=== PATIENT | female | born 1985 | race Caucasian/White ===

== ENCOUNTER 2016-11-15 23:22 | Emergency (ER) | payer OTHER ==
[~2016-11-15] VITALS: Ht 165.1 cm; Wt 68.6 kg
[~2016-11-15 23:22] MED LIST: PRENTAB26 PO
[2016-11-15 23:27] VITALS: TEMP 36.7; Ht 165.1 cm; Wt 68.6 kg
[2016-11-15] MEDS ORDERED: ONDANSETRON INJ 2 MG/ML 2 ML VIAL IV STA (23:35)
[2016-11-15] MEDS ORDERED: SODIUM CHLORIDE 0.9% 1000ML 1,000 ML IV STA (23:35)
--- NOTE | 2016-11-15 23:48 | EMERGENCY ROOM VISIT NOTE ---
History Report prepared by Balwinder: Senia Emmanuel Under the Supervision of: Dave PriceO. First contact with patient: 23:30 Chief Complaint: ABDOMINAL PAIN Stated Complaint: STOMACH PAIN, VOMIT, DIARRHEA, DIZZY History of Present Illness The patient is a 31 year old female who presents to the Emergency Room with complaints of constant diffuse abdominal pain since last night. This morning she became nauseated and had intermittent vomiting. This evening the patient began experiencing diarrhea as well. She describes her pain as severe and rates it as a 10/10. Her abdominal pain radiates into her back. She states that she feels dehydrated. The patient has had suprapubic abdominal pain for "the past couple of weeks." She is urinating more frequently than usual and states that if she has to "hold it" her suprapubic pain worsens and she has a difficult time voiding. Her LNMP was about 3 weeks ago. She denies chance of . The patient denies fevers and any sick contacts. Source of History: patient Onset: last night Position: abdomen Symptom Intensity: 10/10 Quality: other (diffuse) Timing: constant Associated Symptoms: + back pain, + diarrhea, + nausea, + urinary symptoms, + vomiting, No fevers Review of Systems See HPI for pertinent positives & negatives. A total of 10 systems reviewed and were otherwise negative. Past Medical & Surgical Medical Problems: (1) Generalized anxiety disorder (2) Thrombosed external hemorrhoid Family History No pertinent history stated. Social History Smoking Status: Current Every Day Smoker Smokeless Tobacco Use: No Alcohol Use: none Marital Status: in relationship Housing Status: lives with family Occupation Status: unemployed Current/Historical Medications No Active Prescriptions or Reported Meds Allergies Coded Allergies: No Known Allergies (Verified , 11/15/16) Physical Exam Vital Signs Date Time Temp Pulse Resp B/P Pulse Ox O2 Delivery O2 Flow Rate FiO2 11/16/16 02:28 58 16 103/55 98 Room Air 11/16/16 01:47 76 18 106/64 98 Room Air 11/16/16 00:51 68 16 102/52 96 Room Air 11/15/16 23:27 36.7 103 20 124/85 96 Room Air Physical Exam GENERAL: Patient is awake, alert, and in no acute distress. Patient is resting comfortably and showing no signs of anxiety EYES: The conjunctivae are clear. The pupils are round and reactive. EARS, NOSE, MOUTH AND THROAT: The nose is without any evidence of any deformity. Mucous membranes are moist tongue is midline NECK: The neck is nontender and supple. RESPIRATORY: Normal respiratory effort is noted there is no evidence of wheezing rhonchi or rales CARDIOVASCULAR: Regular rate and rhythm noted there no murmurs rubs or gallops normal S1 normal S2 GASTROINTESTINAL: The abdomen is soft and nondistended, no specific guarding or rigidity. Bowel sounds are present in all quadrants. MUSCULOSKELETAL/EXTREMITIES: There is no evidence of gross deformity full range of motion is noted in the hips and shoulders SKIN: There is no obvious evidence of any rash. There are no petechiae, pallor or cyanosis noted. NEUROLOGIC: Patient is awake alert and oriented x3 Medical Decision & Procedures ER Provider Diagnostic Interpretation: CT the abdomen and pelvis was obtained in the emergency department. The report was reviewed. Preliminary Findings Only See Final Report For Complete Findings CT ABDOMEN & PELVIS: Compared to 09/24/11 Normal appendix. Liquid distal colonic contents may reflect diarrheal illness. No GI or urinary tract obstruction. Small amount of free pelvic fluid may be physiologic. Tiny fatty umbilical hernia. Radiologist: Kedar Vicente M.D. Study ready at 01:50 and initial results transmitted at 02:04 Chest x-ray as interpreted by myself reveals no infiltrate, no free air, heart size is normal. Abdominal x-ray as interpreted by myself reveals nonspecific bowel-gas pattern. Laboratory Results 11/15/16 23:45 Red Blood Count 4.98, Mean Corpuscular Volume 89.6, Mean Corpuscular Hemoglobin 31.9, Mean Corpuscular Hemoglobin Concent 35.7, Mean Platelet Volume 9.8, Neutrophils (%) (Auto) 75.4, Lymphocytes (%) (Auto) 19.6, Monocytes (%) (Auto) 4.1, Eosinophils (%) (Auto) 0.6, Basophils (%) (Auto) 0.1, Neutrophils # (Auto) 11.91, Lymphocytes # (Auto) 3.09, Monocytes # (Auto) 0.64, Eosinophils # (Auto) 0.09, Basophils # (Auto) 0.02 11/15/16 23:45 Test 11/15/16 23:40 11/15/16 23:45 Urine Color DK YELLOW Urine Appearance CLOUDY (CLEAR) Urine pH 5.0 (4.5-7.5) Urine Specific [place] 1.027 (1.000-1.030) Urine Protein NEG (NEG) Urine Glucose (UA) NEG (NEG) Urine Ketones TRACE (NEG) Urine Occult Blood TRACE (NEG) Urine Nitrite NEG (NEG) Urine Bilirubin NEG (NEG) Urine Urobilinogen NEG (NEG) Urine Leukocyte Esterase NEG (NEG) Urine WBC (Auto) 1-5 /hpf (0-5) Urine RBC (Auto) 5-10 /hpf (0-4) Urine Hyaline Casts (Auto) 10-30 /lpf (0-5) Urine Epithelial Cells (Auto) >30 /lpf (0-5) Urine Bacteria (Auto) NEG (NEG) Urine Pathogenic Casts /lpf (0) White Blood Count 15.78 K/uL (4.8-10.8) Red Blood Count 4.98 M/uL (4.2-5.4) Hemoglobin 15.9 g/dL (12.0-16.0) Hematocrit 44.6 % (37-47) Mean Corpuscular Volume 89.6 fL (80-100) Mean Corpuscular Hemoglobin 31.9 pg (25-34) Mean Corpuscular Hemoglobin Concent 35.7 g/dl (32-36) Platelet Count 277 K/uL (130-400) Mean Platelet Volume 9.8 fL (7.4-10.4) Neutrophils (%) (Auto) 75.4 % Lymphocytes (%) (Auto) 19.6 % Monocytes (%) (Auto) 4.1 % Eosinophils (%) (Auto) 0.6 % Basophils (%) (Auto) 0.1 % Neutrophils # (Auto) 11.91 K/uL (1.4-6.5) Lymphocytes # (Auto) 3.09 K/uL (1.2-3.4) Monocytes # (Auto) 0.64 K/uL (0.11-0.59) Eosinophils # (Auto) 0.09 K/uL (0-0.5) Basophils # (Auto) 0.02 K/uL (0-0.2) RDW Standard Deviation 42.3 fL (36.4-46.3) RDW Coefficient of Variation 12.9 % (11.5-14.5) Immature Granulocyte % (Auto) 0.2 % Immature Granulocyte # (Auto) 0.03 K/uL (0.00-0.02) Anion Gap 8.0 mmol/L (3-11) Est Creatinine Clear Calc Drug Dose 97.6 ml/min Estimated GFR () 111.3 Estimated GFR (Non- 96.0 BUN/Creatinine Ratio 19.1 (10-20) Calcium Level 9.3 mg/dl (8.5-10.1) Total Bilirubin 0.7 mg/dl (0.2-1) Direct Bilirubin 0.1 mg/dl (0-0.2) Aspartate Amino Transf (AST/SGOT) 14 U/L (15-37) Alanine Aminotransferase (ALT/SGPT) 15 U/L (12-78) Alkaline Phosphatase 103 U/L (45-117) Total Protein 7.9 gm/dl (6.4-8.2) Albumin 4.5 gm/dl (3.4-5.0) Lipase 68 U/L (73-393) Human Chorionic Gonadotropin, Qual NEG (NEG) Laboratory results per my review. Medications Administered Medications (Trade) Dose Ordered Sig/Dianne Route Start Time Stop Time Status Last Admin Dose Admin Sodium Chloride (Nss 1000ml) 1,000 ml @ 999 mls/hr Q1H1M STAT IV 11/15/16 23:35 11/16/16 00:35 DC 11/15/16 23:35 999 MLS/HR Ondansetron HCl (Zofran Inj) 4 mg NOW STAT IV 11/15/16 23:35 11/15/16 23:37 DC 11/15/16 23:35 4 MG Oxycodone HCl (Roxicodone Immediate Rel 5MG Home Pack) 1 homepack UD ONCE PO 11/16/16 02:30 11/16/16 02:31 DC 11/16/16 02:52 1 HOMEPACK Ondansetron HCl (ZOFRAN ODT 4MG Home Pack) 1 homepack UD ONCE PO 11/16/16 02:30 11/16/16 02:31 DC 11/16/16 02:53 1 HOMEPACK ED Course 2330: The patient was evaluated in room A11B. A complete history and physical examination were performed. 2335: Zofran 4 mg IV, NSS 1000 ml @ 999 mls/hr IV 0119: I reassessed the patient and she is still having pain. 0130: Morphine sulfate 4 mg IV PRN 0221: I reassessed the patient at this time. She is feeling better and resting comfortably. I discussed the results and treatment plan with the patient. I answered all pertaining questions that she had. She expressed understanding and verbalized agreement. The patient will be discharged home. 0230: Zofran 4 mg PO 1 homepack, Oxycodone HCl PO 1 homepack Medical Decision Differential diagnosis: Etiologies such as appendicitis, diverticulitis, PUD, biliary pathology, UTI, pancreatitis, obstruction, mesenteric ischemia, aortic pathology, infections, inflammatory bowel disease, renal colic, as well as others were entertained. Nursing notes reviewed. The patient is a 31-year-old female who presented to the emergency department for an evaluation of abdominal pain as well as diarrhea. She also had some nausea and vomiting symptoms. Patient's condition was not apparently consistent with an acute surgical abdomen. She was treated with IV fluids IV pain medicine IV antiemetics. She was found have an elevated white blood cell count. She had continued abdominal pain. For this reason a CT abdomen and pelvis was obtained. I discussed the patient's laboratory radiographic studies with her. She was feeling much better on subsequent reevaluation. She was encouraged to rest and avoid any strenuous activity. She was encouraged to drink plenty clear liquids including Pedialyte and Gatorade. She was also encouraged to follow-up with her family doctor this week for reevaluation or return to the emergency department immediately if symptoms change worsen or if the need arises. Impression Primary Impression: Abdominal pain, diffuse Additional Impression: Diarrhea Scribe Attestation The scribe's documentation has been prepared under my direction and personally reviewed by me in its entirety. I confirm that the note above accurately reflects all work, treatment, procedures, and medical decision making performed by me. Departure Information Dispostion Home / Self-Care Prescriptions No Active Prescriptions or Reported Meds Referrals Connie Oleary C.R.N.P (PCP) Forms HOME CARE DOCUMENTATION FORM, IMPORTANT VISIT INFORMATION, Work Instructions Patient Instructions Diarrhea, [facility], Vomiting - [facility] Additional Instructions Continue all medications as prescribed. Drink plenty clear liquids. Follow-up with your family this week for reevaluation but return to the emergency department immediately if symptoms change worsen or the need arises. Problem Qualifiers Additional Impression: Diarrhea Diarrhea type: unspecified type Qualified Codes: R19.7 - Diarrhea, unspecified
[2016-11-15 23:59] LABS: BASO % 0.1 %; BASO ABS # 0.02 K/uL (0-0.2); COMPLETE YES; EOS % 0.6 %; HEMATOCRIT 44.6 % (37-47); IG% 0.2 %; LYMPH % 19.6 %; LYMPH ABS # 3.09 K/uL (1.2-3.4); MEAN CELL VOLUME 89.6 fL (80-100); MEAN CORPUSCULAR HEMOGLOBIN 31.9 pg (25-34); MEAN CORPUSCULAR HGB CONC 35.7 g/dl (32-36); MEAN PLATELET VOLUME 9.8 fL (7.4-10.4); MONO % 4.1 %; NEUT % 75.4 %; PLATELET COUNT 277 K/uL (130-400); RED BLOOD COUNT 4.98 M/uL (4.2-5.4); WHITE BLOOD COUNT 15.78 K/uL (4.8-10.8)
[2016-11-16 00:18] LABS: CREATININE 0.82 mg/dl (0.60-1.20)
[2016-11-16 00:19] LABS: BUN/CREATININE RATIO 19.1 (10-20); CALCIUM 9.3 mg/dl (8.5-10.1); POTASSIUM 3.4 mmol/L (3.5-5.1)
[2016-11-16 00:20] LABS: URINE APPEARANCE CLOUDY (CLEAR); URINE BILIRUBIN NEG (NEG); URINE COLOR DK YELLOW; URINE EPITHELIAL CELL AUTO >30 /lpf (0-5); URINE NITRITE NEG (NEG); URINE SPECIFIC GRAVITY 1.027 (1.000-1.030); UROBILINOGEN NEG (NEG)
[2016-11-16 00:35] LABS: MANUAL MICROSCOPIC REQUIRED? NO; REVIEW REQ? YES
[2016-11-16 00:59] LABS: PREG INTERNAL NEGATIVE QC NEG CLEAR BACKGROUND; PREG INTERNAL POSITIVE QC POS CONTROL LINE
[2016-11-16] MEDS ORDERED: MoRPHine SULFATE 4 MG/ML 1 ML CARP\\VIAL IV PRN (01:30)
[2016-11-16 02:28] VITALS: BP 103/55; PULSE 58; O2SAT 98
[2016-11-16] MEDS ORDERED: ONDANSETRON HOME PACK 4MG OD TAB PO ONE (02:30)
[2016-11-16] MEDS ORDERED: OXYCODONE IR HOME PACK PO ONE (02:30)
--- NOTE | 2016-11-16 07:59 | DIAGNOSTIC IMAGING REPORT ---
ABDOMEN AND PELVIS CT WITHOUT CONTRAST CT DOSE: 372.38 mGy.cm HISTORY: Lower abdominal pain. TECHNIQUE: Multiaxial CT images of the abdomen and pelvis were performed without contrast. COMPARISON STUDY: Abdomen and pelvis CT 09/16/2011. FINDINGS: The lung bases are clear. No pneumoperitoneum. No pneumatosis. No suspicious lytic or blastic osseous lesions. The unenhanced liver, gallbladder, spleen, adrenal glands, pancreas, and kidneys are unremarkable. No hydronephrosis. The bladder, uterus, bilateral adnexa are unremarkable. Liquid stool within the colon. Suboptimal evaluation for bowel pathology due to the lack of intravenous and oral contrast. However, there is no definite bowel wall thickening or obstruction. Normal appendix. No retroperitoneal lymphadenopathy. Trace pelvic free fluid which is likely physiologic. IMPRESSION: 1. Liquid stool within the colon. This can be seen in the setting of a gastroenteritis. 2. No definite bowel wall thickening or obstruction. 3. Normal appendix. Electronically signed by: Reyes Fairbanks M.D. 11/16/2016 7:57 AM Dictated Date/Time: 11/16/2016 7:53 AM
--- NOTE | 2016-11-16 08:00 | DIAGNOSTIC IMAGING REPORT ---
CHEST AND ABDOMEN 2 VIEWS HISTORY: Nausea. Vomiting. Diarrhea. COMPARISON: Chest 09/01/2006. Abdomen and pelvis CT 09/16/2011. FINDINGS: The lungs are clear. The cardiomediastinal silhouette is within normal limits. There is no pneumoperitoneum or pneumatosis. The bowel gas pattern is unremarkable. No evidence for bowel obstruction. No pathologic calcifications. Multiple small fluid levels within the colon. IMPRESSION: No acute cardiopulmonary process. No evidence for bowel obstruction. Multiple small fluid levels within the colon. This can be seen in the setting of a gastroenteritis. Electronically signed by: Reyes Fairbanks M.D. 11/16/2016 7:58 AM Dictated Date/Time: 11/16/2016 7:57 AM
== END 2016-11-16 02:57 | disposition home or self-care (01) ==
LOC: C.EDB 23:23 → C.EDA 11-16 02:57
DX: R10.9 Unspecified abdominal pain (principal); R19.7 Diarrhea, unspecified; F17.200 Nicotine dependence, unspecified, uncomplicated

== ENCOUNTER → 2016-11-30 | Outpatient (CLI) | payer OTHER | END | disposition home or self-care (01) | LOC: C.PAPS 08:00 | PROVIDERS: ATTEND Obstetrics & Gynecology | DX: Z01.419 Encounter for gynecological examination (general) (routine) without abnormal findings (principal) ==

== ENCOUNTER → 2016-12-04 | Outpatient (CLI) | payer OTHER ==
[2016-12-04 13:33] LABS: PROLACTIN 5.39 ng/mL
== END | disposition home or self-care (01) ==
LOC: C.LAB 11:43
PROVIDERS: ATTEND Obstetrics & Gynecology
DX: N94.6 Dysmenorrhea, unspecified (principal); R10.2 Pelvic and perineal pain

== ENCOUNTER → 2017-01-03 | Outpatient (CLI) | payer OTHER ==
[2017-01-03 15:07] LABS: URINE APPEARANCE CLEAR (CLEAR); URINE BILIRUBIN NEG (NEG); URINE COLOR YELLOW; URINE NITRITE NEG (NEG); UROBILINOGEN NEG (NEG)
[2017-01-03 15:14] LABS: MANUAL MICROSCOPIC REQUIRED? NO; REVIEW REQ? NO
--- NOTE | 2017-01-08 09:24 | CODING QUERY NO DIAGNOSIS ---
TREATMENT RENDERED WITHOUT A DIAGNOSIS To promote full compliance with coding requirements relating to patient care, physician participation is requested in all cases of restaurant attendant uncertainty. Please assist us with providing a diagnosis/symptom for the test(s) below: A diagnosis/symptom was not documented on your Order. A valid diagnosis/symptom is required to bill all insurances. Please remember that we are unable to code a diagnosis of rule out, probable, possible, questionable, or suspected. Tests that require a diagnosis: DOS: 01/03/17 * U/A AND CULTURE CATH DIAGNOSIS: Provider Signature: Date: Thank you Karina Rob [employer] Once completed, please kindly fax back to [phone] For questions please call [phone]
== END | disposition home or self-care (01) ==
LOC: C.LABSPEC 14:28
PROVIDERS: ATTEND Obstetrics & Gynecology
DX: R30.0 Dysuria (principal)

== ENCOUNTER → 2017-07-03 | Outpatient (CLI) | payer OTHER ==
[~2017-07-03] MED LIST changes: +ACET-1311 PO; +ONDA4TAB10 SL; -PRENTAB26 PO
[2017-07-03 18:03] LABS: ALT/SGPT 17 U/L (12-78); BLOOD UREA NITROGEN 12 mg/dl (7-18); BUN/CREATININE RATIO 15.3 (10-20); CALCIUM 9.7 mg/dl (8.5-10.1); CARBON DIOXIDE 25 mmol/L (21-32); CHLORIDE 107 mmol/L (98-107); CREATININE 0.75 mg/dl (0.60-1.20); GLUCOSE 90 mg/dl (70-99); POTASSIUM 3.9 mmol/L (3.5-5.1); SODIUM 140 mmol/L (136-145)
[2017-07-03 18:13] LABS: BASO % 0.1 %; BASO ABS # 0.01 K/uL (0-0.2); COMPLETE YES; EOS % 0.3 %; IG% 0.2 %; LYMPH % 21.2 %; LYMPH ABS # 2.13 K/uL (1.2-3.4); MEAN CELL VOLUME 91.5 fL (80-100); MEAN CORPUSCULAR HEMOGLOBIN 30.9 pg (25-34); MEAN CORPUSCULAR HGB CONC 33.8 g/dl (32-36); MEAN PLATELET VOLUME 10.2 fL (7.4-10.4); MONO % 4.3 %; NEUT % 73.9 %; PLATELET COUNT 272 K/uL (130-400); RED BLOOD COUNT 4.92 M/uL (4.2-5.4); WHITE BLOOD COUNT 10.05 K/uL (4.8-10.8)
[2017-07-03 18:16] LABS: ALB/GLOB RATIO 1.3 (0.9-2); ALKALINE PHOSPHATASE 102 U/L (45-117); AST/SGOT 14 U/L (15-37); THYROID STIMULATING HORMONE 0.884 uIu/ml (0.300-4.500)
== END | disposition home or self-care (01) ==
LOC: C.LABPVFM 14:29
PROVIDERS: ATTEND Nurse Practitioner Family
DX: R35.0 Frequency of micturition (principal); E55.9 Vitamin D deficiency, unspecified; R79.89 Other specified abnormal findings of blood chemistry; F41.9 Anxiety disorder, unspecified

== ENCOUNTER → 2017-08-07 | Outpatient (CLI) | payer OTHER ==
[~2017-08-07] MED LIST changes: +AMOX500C3 PO; +SERT50TA PO
[2017-08-07 17:58] LABS: ZZInitiateTest Complete
[2017-08-07 18:41] LABS: MANUAL MICROSCOPIC REQUIRED? NO; REVIEW REQ? NO
--- NOTE | 2017-08-30 12:21 | CODING QUERY NO DIAGNOSIS ---
TREATMENT RENDERED WITHOUT A DIAGNOSIS 08/07/17 To promote full compliance with coding requirements relating to patient care, physician participation is requested in all cases of mainframe applications developer uncertainty. Please assist us with providing a diagnosis/symptom for the test(s) below: A diagnosis/symptom was not documented on your Order. A valid diagnosis/symptom is required to bill all insurances. Please remember that we are unable to code a diagnosis of rule out, probable, possible, questionable, or suspected. Tests that require a diagnosis: * URINE MICROSCOPY DIAGNOSIS: Provider Signature: Date: Thank you Ivis Black Health Information Management Once completed, please kindly fax back to [phone] For questions please call [phone]
== END | disposition home or self-care (01) ==
LOC: C.LABPVFM 11:35
PROVIDERS: ATTEND Nurse Practitioner Family
DX: R31.29 Other microscopic hematuria (principal)

== ENCOUNTER 2017-08-10 10:11 | Emergency (ER) | payer OTHER ==
[~2017-08-10] VITALS: Ht 165.1 cm; Wt 63.5 kg
[2017-08-10] MEDS ORDERED: SODIUM CHLORIDE 0.9% 1000ML 1,000 ML IV STA (11:10)
[2017-08-10] MEDS ORDERED: ACETAMINOPHEN 500 MG TAB PO STA (11:10)
[2017-08-10] MEDS ORDERED: COUGH DROP (SUGAR FREE) LOZ 24 LOZ/1 BOX PO STA (11:10)
[2017-08-10] MEDS ORDERED: ONDANSETRON 8 MG/54 ML D5W IV STA (11:10)
[2017-08-10] MEDS ORDERED: IBUPROFEN 600 MG TAB PO STA (11:10)
[2017-08-10] MEDS ORDERED: ACET-1311 PO (11:17)
[2017-08-10 11:22] VITALS: Ht 165.1 cm; Wt 63.5 kg
[2017-08-10 11:31] LABS: BASO % 0.1 %; BASO ABS # 0.01 K/uL (0-0.2); COMPLETE YES; EOS % 0.1 %; HEMATOCRIT 41.8 % (37-47); IG% 0.3 %; LYMPH % 10.4 %; LYMPH ABS # 1.56 K/uL (1.2-3.4); MEAN CELL VOLUME 88.7 fL (80-100); MEAN CORPUSCULAR HEMOGLOBIN 30.8 pg (25-34); MEAN CORPUSCULAR HGB CONC 34.7 g/dl (32-36); MEAN PLATELET VOLUME 9.6 fL (7.4-10.4); MONO % 5.2 %; NEUT % 83.9 %; PLATELET COUNT 202 K/uL (130-400); RED BLOOD COUNT 4.71 M/uL (4.2-5.4); WHITE BLOOD COUNT 15.04 K/uL (4.8-10.8)
[2017-08-10 11:39] LABS: INR 1.1 (0.9-1.1); PARTIAL THROMBOPLASTIN RATIO 1.1
[2017-08-10 11:39] LABS: URINE APPEARANCE CLOUDY (CLEAR); URINE BILIRUBIN NEG (NEG); URINE COLOR DK YELLOW; URINE EPITHELIAL CELL AUTO >30 /lpf (0-5); URINE NITRITE NEG (NEG); URINE SPECIFIC GRAVITY 1.022 (1.000-1.030); UROBILINOGEN NEG (NEG)
[2017-08-10 11:41] LABS: MANUAL MICROSCOPIC REQUIRED? NO; REVIEW REQ? NO
[2017-08-10 11:45] LABS: CREATININE 0.66 mg/dl (0.60-1.20); POTASSIUM 3.6 mmol/L (3.5-5.1)
--- NOTE | 2017-08-10 11:48 | DIAGNOSTIC IMAGING REPORT ---
SINGLE VIEW CHEST CLINICAL HISTORY: Generalized weakness. FINDINGS: An AP, portable, upright chest radiograph is compared to study dated 11/16/2016. The examination is degraded by portable technique and patient rotation. The cardiomediastinal silhouette is unremarkable. The lungs appear hyperinflated, likely due to good inspiratory result. The lungs and pleural spaces are clear. No pneumothorax is seen. The bony thorax is grossly intact. IMPRESSION: No active disease in the chest. Electronically signed by: David West M.D. 08/10/2017 11:47 AM Dictated Date/Time: 08/10/2017 11:46 AM
[2017-08-10 11:56] LABS: THYROID STIMULATING HORMONE 0.895 uIu/ml (0.300-4.500)
--- NOTE | 2017-08-10 12:06 | EMERGENCY ROOM VISIT NOTE ---
History Report prepared by Balwinder: Senia Emmanuel Under the Supervision of: Dr. Kev Burris M.D. First contact with patient: 10:43 Chief Complaint: ILLNESS Stated Complaint: BACK, SHOULDER PAIN, MCKEON, N, SORETHROAT History of Present Illness The patient is a 32 year old white female with no significant past medical history who presents to the ED with a cc of worsening illness for the past couple of weeks. She is "just getting over some upper respiratory symptoms." Her symptoms became worse last night. She is currently c/o generalized pain in her back, abdomen, and shoulders. She describes her pain as sharp and rates it as a 10/10. Positive sore throat, headache, productive cough, nausea, dizziness. Negative urinary symptoms, diarrhea, leg pain or swelling, rash. She has been taking Tylenol, which has helped her headache but nothing else. She has not had a flu shot this year. Pt denies recent travel. She was on antibiotics about 2 weeks ago for a vaginal infection. Source of History: patient Onset: MEDICARE BILLER Position: other (global) Symptom Intensity: 10/10 Quality: sharp Timing: worsening Modifying Factors (Relieving): tylenol Associated Symptoms: + headache, + sorethroat, + cough, + nausea, + abdominal pain, + back pain, No diarrhea, No urinary symptoms, No rash Review of Systems See HPI for pertinent positives and negatives. A total of ten systems were reviewed and were otherwise negative. Past Medical & Surgical Medical Problems: (1) Generalized anxiety disorder (2) Thrombosed external hemorrhoid Family History No pertinent history stated. Social History Smoking Status: Current Every Day Smoker Alcohol Use: none Marital Status: in relationship Housing Status: lives with family Occupation Status: unemployed Current/Historical Medications Scheduled Ondasetron Odt (Zofran Odt), 4 MG SL Q6H Miscellaneous Medications Acetaminophen (Tylenol), 650 MG PO Allergies Coded Allergies: No Known Allergies (Verified , 08/10/17) Physical Exam Vital Signs Date Time Temp Pulse Resp B/P (MAP) Pulse Ox O2 Delivery O2 Flow Rate FiO2 08/10/17 13:27 88 16 115/72 98 08/10/17 13:12 63 20 106/62 98 Room Air 08/10/17 12:20 36.6 53 16 98/59 98 Room Air 08/10/17 10:33 36.7 88 20 106/65 100 Room Air Physical Exam GENERAL: Awake, alert, well-appearing, NAD HENT: Normocephalic, atraumatic. Posterior pharynx clear, no tonsillitis, no exudate. EYES: Normal conjunctiva. Sclera non-icteric. NECK: Supple. No nuchal rigidity. FROM. No stridor over anterior neck. RESPIRATORY: CTAB, no rhonchi, wheezing, crackles CARDIAC: RRR, no MRG ABDOMEN: Soft, mild epigastric pain, BS+ MSK: No chest wall TTP, no LE edema NEURO: GCS 15, CN 2-12 intact, moves all 4s on command SKIN: No rash or jaundice noted. Medical Decision & Procedures ER Provider Diagnostic Interpretation: Radiology results as stated below per my review and radiologist interpretation: SINGLE VIEW CHEST CLINICAL HISTORY: Generalized weakness. FINDINGS: An AP, portable, upright chest radiograph is compared to study dated 11/16/2016. The examination is degraded by portable technique and patient rotation. The cardiomediastinal silhouette is unremarkable. The lungs appear hyperinflated, likely due to good inspiratory result. The lungs and pleural spaces are clear. No pneumothorax is seen. The bony thorax is grossly intact. IMPRESSION: No active disease in the chest. Electronically signed by: David West M.D. 08/10/2017 11:47 AM Dictated Date/Time: 08/10/2017 11:46 AM Laboratory Results 08/10/17 11:20 Red Blood Count 4.71, Mean Corpuscular Volume 88.7, Mean Corpuscular Hemoglobin 30.8, Mean Corpuscular Hemoglobin Concent 34.7, Mean Platelet Volume 9.6, Neutrophils (%) (Auto) 83.9, Lymphocytes (%) (Auto) 10.4, Monocytes (%) (Auto) 5.2, Eosinophils (%) (Auto) 0.1, Basophils (%) (Auto) 0.1, Neutrophils # (Auto) 12.63, Lymphocytes # (Auto) 1.56, Monocytes # (Auto) 0.78, Eosinophils # (Auto) 0.01, Basophils # (Auto) 0.01 08/10/17 11:20 Test 08/10/17 11:15 08/10/17 11:20 Urine Color DK YELLOW Urine Appearance CLOUDY (CLEAR) Urine pH 6.0 (4.5-7.5) Urine Specific [place] 1.022 (1.000-1.030) Urine Protein NEG (NEG) Urine Glucose (UA) NEG (NEG) Urine Ketones 1+ (NEG) Urine Occult Blood TRACE (NEG) Urine Nitrite NEG (NEG) Urine Bilirubin NEG (NEG) Urine Urobilinogen NEG (NEG) Urine Leukocyte Esterase NEG (NEG) Urine WBC (Auto) 1-5 /hpf (0-5) Urine RBC (Auto) 10-30 /hpf (0-4) Urine Hyaline Casts (Auto) 1-5 /lpf (0-5) Urine Epithelial Cells (Auto) >30 /lpf (0-5) Urine Bacteria (Auto) NEG (NEG) Urine Test NEG (NEG) Influenza Type A Antigen Neg for Influ A (NEG) Influenza Type B Antigen Neg for Influ B (NEG) White Blood Count 15.04 K/uL (4.8-10.8) Red Blood Count 4.71 M/uL (4.2-5.4) Hemoglobin 14.5 g/dL (12.0-16.0) Hematocrit 41.8 % (37-47) Mean Corpuscular Volume 88.7 fL (80-100) Mean Corpuscular Hemoglobin 30.8 pg (25-34) Mean Corpuscular Hemoglobin Concent 34.7 g/dl (32-36) Platelet Count 202 K/uL (130-400) Mean Platelet Volume 9.6 fL (7.4-10.4) Neutrophils (%) (Auto) 83.9 % Lymphocytes (%) (Auto) 10.4 % Monocytes (%) (Auto) 5.2 % Eosinophils (%) (Auto) 0.1 % Basophils (%) (Auto) 0.1 % Neutrophils # (Auto) 12.63 K/uL (1.4-6.5) Lymphocytes # (Auto) 1.56 K/uL (1.2-3.4) Monocytes # (Auto) 0.78 K/uL (0.11-0.59) Eosinophils # (Auto) 0.01 K/uL (0-0.5) Basophils # (Auto) 0.01 K/uL (0-0.2) RDW Standard Deviation 40.8 fL (36.4-46.3) RDW Coefficient of Variation 12.6 % (11.5-14.5) Immature Granulocyte % (Auto) 0.3 % Immature Granulocyte # (Auto) 0.05 K/uL (0.00-0.02) Prothrombin Time 12.0 SECONDS (9.0-12.0) Prothromb Time International Ratio 1.1 (0.9-1.1) Activated Partial Thromboplast Time 29.3 SECONDS (21.0-31.0) Partial Thromboplastin Ratio 1.1 Anion Gap 6.0 mmol/L (3-11) Est Creatinine Clear Calc Drug Dose 111.1 ml/min Estimated GFR () 136.4 Estimated GFR (Non- 117.7 BUN/Creatinine Ratio 18.0 (10-20) Calcium Level 9.0 mg/dl (8.5-10.1) Magnesium Level 2.0 mg/dl (1.8-2.4) Total Bilirubin 1.2 mg/dl (0.2-1) Direct Bilirubin 0.2 mg/dl (0-0.2) Aspartate Amino Transf (AST/SGOT) 14 U/L (15-37) Alanine Aminotransferase (ALT/SGPT) 14 U/L (12-78) Alkaline Phosphatase 91 U/L (45-117) Total Protein 7.5 gm/dl (6.4-8.2) Albumin 4.0 gm/dl (3.4-5.0) Lipase 52 U/L (73-393) Thyroid Stimulating Hormone (TSH) 0.895 uIu/ml (0.300-4.500) Laboratory results reviewed by me. Medications Administered Medications (Trade) Dose Ordered Sig/Dianne Route Start Time Stop Time Status Last Admin Dose Admin Sodium Chloride 1,000 ml @ 999 mls/hr Q1H1M STAT IV 08/10/17 11:10 08/10/17 12:10 DC 08/10/17 11:37 999 MLS/HR Ondansetron HCl (Zofran 8mg Iv) 8 mg NOW STAT IV 08/10/17 11:10 08/10/17 11:12 DC 08/10/17 11:37 8 MG Ibuprofen (Motrin Tab) 600 mg NOW STAT PO 08/10/17 11:10 08/10/17 11:12 DC 08/10/17 11:38 600 MG Acetaminophen (Tylenol Tab) 1,000 mg NOW STAT PO 08/10/17 11:10 08/10/17 11:12 DC 08/10/17 11:37 1,000 MG Menthol (Nice Andra) 1 andra NOW STAT PO 08/10/17 11:10 08/10/17 11:12 DC 08/10/17 11:10 1 ANDRA Metoclopramide HCl (Reglan Inj) 10 mg NOW STAT IV 08/10/17 12:42 08/10/17 12:43 DC 08/10/17 12:52 10 MG ED Course 1043: The patient was evaluated in room C2B. A complete history and physical exam was performed. 1110: Menthol 1 andra PO, Tylenol 1000 mg PO, Motrin 600 mg PO, Zofran 8 mg IV, NSS 1000 ml @ 999 mls/hr IV 1221: I updated the patient and she is doing well. 1242: Reglan 10 mg IV 1311: I reassessed the patient at this time. She is feeling better and resting comfortably. I discussed the results and treatment plan with the patient. I answered all pertaining questions that she had. She expressed understanding and verbalized agreement. The patient will be discharged home. Medical Decision The patient is a 32 year old white female with no significant past medical history who presents to the ED with a cc of worsening illness for the past couple of weeks. Differential diagnoses includes viral illness, bronchitis, pneumonia. Patient was seen and evaluated at the bedside. Patient was complaining of some muscular upper respiratory type symptoms as well as body aches headache and back pain. Patient says that the back pain is chronic and has had no prior history of surgery, immunosuppressive therapy, trauma, blood thinners, bowel or bladder incontinence, or saddle anesthesia. Patient also has no lower extremity weakness. Patient did complain of some mild headache however is not the worst of her life and does not have signs of meningismus no stiff neck. Patient has a clear posterior pharynx. Patient does smoke which may be slightly related. Patient was given smoking cessation counseling. Patient did have blood work a urine and chest x-ray and supportive care. Patient was feeling improved although did have some mild nausea. His lab work did show a mild leukocytosis of 15,000. Patient had a clean urine. There was blood in the urine and patient states that she's had this issue in the past and is not on her menstrual period. Patient does have urology follow-up. Patient's kidney function is normal. Patient does not have elevated LFTs or lipase. Patient is feeling improved after IVF. Patient does not have a surgical abdomen. Patient tolerated by mouth. CXR clear. Patient informed of all findings. Patient was given strict follow-up, discharge, and return precautions. Patient reported care patient was safely discharged home. Medication Reconcilliation Current Medication List: was personally reviewed by me Blood Pressure Screening Patient's blood pressure: Normal blood pressure Impression Primary Impression: URI, acute Additional Impressions: Viral illness Encounter for smoking cessation counseling Scribe Attestation The scribe's documentation has been prepared under my direction and personally reviewed by me in its entirety. I confirm that the note above accurately reflects all work, treatment, procedures, and medical decision making performed by me. Departure Information Dispostion Home / Self-Care Prescriptions Ondasetron Odt (ZOFRAN ODT) 4 Mg Tab 4 MG SL Q6H for Nausea, #6 TAB Prov: Kev Burris M.D. 08/10/17 Referrals Minoo Galicia (PCP) Patient Instructions ED Smoking Cessation, [facility] Additional Instructions Please return to the emergency department if you have worsening or recurrent symptoms not amenable to at-home treatment. Please call for a follow-up appointment with her primary care physician. Please take your medications as prescribed. If you have other concerns and/or complaints please feel free to also call your primary care physician's office or return the ED for further evaluation, management, and treatment. You were found to have an elevated blood pressure today (>120 sytolic or >90 diastolic). Per medicare guidelines, you need to follow up with this blood pressure screening with your Primary Care Physician (PCP). For a new PCP call [phone]. You received narcotic or benzodiazepene medication while in the emergency room today. This is an addictive medication that may cause drowziness as well as constipation. Do not drive, operate heavy machinery, or drink alcohol under the influence of this medication. You may take 600 mg Ibuprofen every 6 hours as needed for pain with food for no more than 2 consecutive days. You may take tylenol 1000 mg every 6 hours as needed for pain. You may take motrin and tylenol separately or at the same time. Take nausea medicine as needed. Do not expect to tolerate a full diet while you are sick. Maintain adequate hydration and slowly advance your diet as tolerated. You have been examined and treated today on an emergency basis only. This is not a substitute for, or an effort to provide, complete comprehensive medical care. It is impossible to recognize and treat all injuries or illnesses in a single emergency department visit. It is therefore important that you follow up closely with [facility]. Call as soon as possible for an appointment. Thank you for your time and consideration. I look forward to speaking with you again soon. Please don't hesitate to call us if you have any questions. Problem Qualifiers
[2017-08-10 12:20] VITALS: TEMP 36.6
[2017-08-10] MEDS ORDERED: METOCLOPRAMIDE HCL INJ 5 MG/ML 2 ML VIAL IV STA (12:42)
[2017-08-10] MEDS ORDERED: ONDA4TAB10 SL (12:56)
[2017-08-10 13:27] VITALS: BP 115/72; PULSE 88; O2SAT 98
== END 2017-08-10 13:27 | disposition home or self-care (01) ==
LOC: C.EDB 10:13 → C.EDC 13:27
DX: J06.9 Acute upper respiratory infection, unspecified (principal); Z71.6 Tobacco abuse counseling; F41.1 Generalized anxiety disorder; F17.210 Nicotine dependence, cigarettes, uncomplicated; M54.9 Dorsalgia, unspecified; G89.29 Other chronic pain

== ENCOUNTER 2017-08-14 02:30 | Emergency (ER) | payer OTHER ==
[~2017-08-14] VITALS: Ht 167 cm; Wt 66.4 kg
[~2017-08-14 02:30] MED LIST changes: -AMOX500C3 PO; -SERT50TA PO
[2017-08-14 02:33] VITALS: TEMP 36.4; Ht 167 cm; Wt 66.4 kg
[2017-08-14] MEDS ORDERED: AMOXICILLIN 250 MG CAP PO STA (02:44)
[2017-08-14] MEDS ORDERED: AMOX500C3 PO (02:46)
[2017-08-14] MEDS ORDERED: EMPTY 8 DRAM VIAL ONE (02:49)
--- NOTE | 2017-08-14 02:50 | EMERGENCY ROOM VISIT NOTE ---
History First contact with patient: 02:36 Chief Complaint: EAR PAIN Stated Complaint: LEFT EAR PAIN History of Present Illness The patient is a 32 year old female who presents to the Emergency Room with complaints of left ear pain that woke her up out of sleep tonight who has had cold symptoms for the past week. Patient tried Motrin with minimal relief of symptoms. Patient denies chest pain, dyspnea, neck stiffness, abdominal pain, vomiting, diarrhea. Review of Systems See HPI for pertinent positives & negatives. A total of 10 systems reviewed and were otherwise negative. Past Medical/Surgical History Medical Problems: (1) Generalized anxiety disorder (2) Thrombosed external hemorrhoid Social History Smoking Status: Current Every Day Smoker Alcohol Use: none Marital Status: in relationship Housing Status: lives with family Occupation Status: employed Current/Historical Medications Scheduled Amoxicillin (Amoxil), 1 CAP PO TID Ondasetron Odt (Zofran Odt), 4 MG SL Q6H Miscellaneous Medications Acetaminophen (Tylenol), 650 MG PO Physical Exam Vital Signs Date Time Temp Pulse Resp B/P (MAP) Pulse Ox O2 Delivery O2 Flow Rate FiO2 08/14/17 02:33 36.4 92 18 125/86 100 Room Air Physical Exam VITALS: Vitals are noted on the nurse's note and reviewed by myself. Vital signs stable. GENERAL: Pleasant female, in no acute distress, nondiaphoretic, well-developed well-nourished. SKIN: The skin was without rashes, erythema, edema, or bruising. There is no tenting of the skin. Capillary reflex less than 2 seconds. HEAD: Normocephalic atraumatic. EARS: Left tympanic membranes bulging consistent with otitis media, right External auditory canals clear, tympanic membranes pearly harvey without erythema or effusion. No mastoid tenderness bilaterally. EYES: Pupils equal round and reactive to light and accommodation. Conjunctivae without injection, sclerae without icterus. Extraocular movements intact. NOSE: Patent, turbinates without inflammation or discharge. No sinus tenderness. MOUTH: Mucous membranes moist. Pharynx without erythema or exudate. Uvula midline. Airway patent. Tongue does not deviate. NECK: Supple without nuchal rigidity. No lymphadenopathy. No thyromegaly. Cervical spine is nontender. No JVD. No meningeal signs HEART: Regular rate and rhythm without murmurs gallops or rubs. LUNGS: Clear to auscultation bilaterally without wheezes, rales or rhonchi. No dullness to percussion. No retractions or accessory muscle use. ABDOMEN: Positive bowel sounds x 4. Normal tympanic percussion. Soft, nontender, without masses or organomegaly. Farris sign negative. No guarding or rebound tenderness. MUSCULOSKELETAL: No muscle atrophy, erythema, or edema noted. NEURO: Patient was alert and oriented to person place and time. Normal sensation to light and sharp touch. No focal neurological deficits. Medical Decision & Procedures ED Course Prior records/ancillary studies reviewed. Triage Nursing notes reviewed. The patient's history was concerning for a cold symptoms with ear pain Differential diagnosis: Etiologies such as viral syndrome, tonsillitis, streptococcal pharyngitis, mononucleosis, peritonsillar abscess, retropharyngeal abscess, otitis, pneumonia , influenza, as well as others were entertained. ER treatment provided: Amoxicillin On reassessment the patient felt better. Diagnostics interpreted by me: Deferred This appears to be consistent with left otitis media. Patient started on antibiotics. No signs of meningitis or mastoiditis. Patient was advised to take medications as directed and to follow-up family care in a few days or here in the ER sooner for high fevers, neck stiffness, chest pain, worsening signs or symptoms or as needed. By the evaluation outlined above emergent etiologies such as peritonsillar abscess, retropharyngeal abscess, pneumonia, meningitis, urinary tract infection, sepsis, bacteremia, as well as others were deemed relatively unlikely. The pt informed about the findings as listed above. All questions were answered and pleased with the treatment. Return instructions were outlined and the patient was discharged in stable condition. Outpatient prescription management: Amoxicillin Referral: The patient was referred back to their primary care physician for follow-up in 2 to 3 days for a recheck of the current condition. Medical Decision As above Medication Reconcilliation Current Medication List: was personally reviewed by me Blood Pressure Screening Patient's blood pressure: Normal blood pressure Impression Primary Impression: Left otitis media Departure Information Dispostion Home / Self-Care Condition GOOD Prescriptions Amoxicillin (AMOXIL) 500 Mg Cap 1 CAP PO TID for 10 Days, #30 CAP Prov: Dorcas Enriquez .ZOE 08/14/17 Forms WORK / SCHOOL INSTRUCTIONS, HOME CARE DOCUMENTATION FORM, IMPORTANT VISIT INFORMATION Patient Instructions [facility], ED Otitis Media Acute Adult Additional Instructions Amoxicillin 500 mg: Take one pill 3 times daily for 10 days for your infection. All antibiotics can cause diarrhea. If this occurs and you feel worse or it does not resolve in 1-2 days follow up with your doctor or return to the Emergency Department as this could be signs of serious underlying problems. Any medication can cause an allergic reaction, stop the pills immediately and return to the ER for rash, hives, breathing difficulties, or swelling. Acetaminophen(Tylenol) may be used for fever or pain. Use 1000mg every six hours as needed. Avoid using more than 3000mg in a 24 hour period. (AND/OR) Ibuprofen(Motrin, Advil) may be used for fever or pain. Use 600mg every six hours as needed. Take with food. Avoid using more than 2400mg in a 24 hour period. Do not use 2400mg per day for more than three consecutive days without physician direction. Prolonged inappropriate use can lead to stomach upset or ulcers. Afrin nasal spray: 2-3 sprays to each nostril twice daily as needed for congestion. Do not use for more than 3-4 days because it can lead to worsening rebound congestion. Pseudoephedrine(Sudaphed): 30-60mg every 6 hours as needed for nasal congestion. Do not take this with other stimulant products or supplements. Rest and drink plenty of fluids. Controlling your fever with Tylenol and Ibuprofen as above will make you feel better. Wash your hands after nose blowing, sneezing, or coughing. Most germs are spread through contact, therefore improper hygiene may result in your close contacts and loved ones becoming ill just like you. Continue current medications. Return to the ER for severe headache, neck stiffness, chest pain, difficulty breathing, fevers, vomiting, worsening of your condition, or as needed. Follow up with your primary physician this week for a recheck of your current condition. Problem Qualifiers Primary Impression: Left otitis media Otitis media type: suppurative Chronicity: acute Recurrence: not specified as recurrent Spontaneous tympanic membrane rupture: without spontaneous rupture Qualified Codes: H66.002 - Acute suppurative otitis media without spontaneous rupture of ear drum, left ear
[2017-08-14 03:04] VITALS: BP 130/80; PULSE 90; O2SAT 100
== END 2017-08-14 03:07 | disposition home or self-care (01) ==
LOC: C.EDB 02:31
DX: H66.92 Otitis media, unspecified, left ear (principal)

== ENCOUNTER → 2017-10-08 | Outpatient (CLI) | payer OTHER ==
[~2017-10-08] MED LIST changes: +SERT50TA PO
--- NOTE | 2017-10-08 11:22 | DIAGNOSTIC IMAGING REPORT ---
ABD/PELVIS COMBO CLINICAL HISTORY: 32 years-old Female presenting with R31.29 Hematuria, [id number] DysuriaSPOKE WITH BRIAN C.. TECHNIQUE: Multidetector CT of the abdomen and pelvis was performed before and after the administration of intravenous contrast. IV contrast: 119 mL of Optiray 320. A dose lowering technique was used consistent with the principles of ALARA (as low as reasonably achievable). COMPARISON: 11/16/2016. CT DOSE (mGy.cm): The estimated cumulative dose is 968.58 mGycm. FINDINGS: Upholstered Goods Crafter topogram: Unremarkable. Lung bases: Subtle diffuse groundglass centrilobular tree-in-bud opacities suggested. Normal heart size. No pericardial or pleural effusion. Liver: Normal morphology. No liver lesion. Patent hepatic vasculature. Biliary: No intrahepatic or extrahepatic biliary ductal dilatation. Normal gallbladder. Pancreas: Normal. Spleen: Normal. Adrenal glands: Normal. Kidneys and ureters: Normal. No nephrolithiasis. Normal excretion of the kidneys bilaterally. No hydronephrosis. No filling defects in the urinary collecting systems. Circumaortic left renal vein noted. Allowing for incomplete opacification of the left ureter on delayed imaging, the ureters are normal. Bladder: Incompletely evaluated secondary to underdistention. Pelvic organs: Retroverted uterus. Multiple follicles noted bilaterally in the ovaries. The right ovary is mildly prominent, likely within the range of normal. Bowel: Normal appendix. No bowel obstruction. Peritoneal cavity: No free fluid or intraperitoneal gas. Lymph nodes: No enlarged lymph nodes in the abdomen or pelvis. Vasculature: Aorta and IVC patent and normal in caliber. Abdominal wall: Normal. Musculoskeletal: Normal. IMPRESSION: 1. Allowing for under distention of the urinary bladder, normal-appearing urinary collecting systems without evidence of calculus or mass. Normal kidneys. 2. Subtle diffuse groundglass centrilobular tree-in-bud opacities at the lung bases. This could be seen in the setting of respiratory bronchiolitis if the patient smokes or hypersensitivity pneumonitis if the patient does not smoke among other etiologies. Electronically signed by: Steven Tang M.D. 10/08/2017 11:21 AM Dictated Date/Time: 10/08/2017 11:11 AM
== END | disposition home or self-care (01) ==
LOC: C.CTS 10:33
PROVIDERS: ATTEND Urology
DX: R31.29 Other microscopic hematuria (principal); R30.0 Dysuria; R91.8 Other nonspecific abnormal finding of lung field

== ENCOUNTER → 2017-12-16 | Outpatient (CLI) | payer OTHER | END | disposition home or self-care (01) | LOC: C.PAPS 14:26 | PROVIDERS: ATTEND Obstetrics & Gynecology | DX: Z01.419 Encounter for gynecological examination (general) (routine) without abnormal findings (principal) ==

== ENCOUNTER 2018-02-03 10:16 | Emergency (ER) | payer OTHER ==
[~2018-02-03] VITALS: Ht 165.1 cm; Wt 58.9 kg
[2018-02-03 10:26] VITALS: TEMP 36.6; Ht 165.1 cm; Wt 58.9 kg
[2018-02-03] MEDS ORDERED: SODIUM CHLORIDE 0.9% 1000ML 1,000 ML IV STA (11:43)
[2018-02-03] MEDS ORDERED: ONDANSETRON INJ 2 MG/ML 2 ML VIAL IV STA (11:43)
[2018-02-03] MEDS ORDERED: ACETAMINOPHEN IV 100 ML IV ONE (11:45)
[2018-02-03] MEDS ORDERED: OPTIRAY 320 IV PRN (12:15)
[2018-02-03 12:45] LABS: BASO % 0.3 %; BASO ABS # 0.03 K/uL (0-0.2); EOS % 0.3 %; EOS ABS # 0.03 K/uL (0-0.5); HEMATOCRIT 39.7 % (37-47); HEMOGLOBIN 13.7 g/dL (12.0-16.0); IG# 0.02 K/uL (0.00-0.02); LYMPH % 13.6 %; MEAN CELL VOLUME 90.8 fL (80-100); MEAN CORPUSCULAR HEMOGLOBIN 31.4 pg (25-34); MEAN CORPUSCULAR HGB CONC 34.5 g/dl (32-36); MEAN PLATELET VOLUME 9.4 fL (7.4-10.4); MONO % 6.1 %; MONO ABS # 0.72 K/uL (0.11-0.59); NEUT % 79.5 %; NEUT ABS # 9.37 K/uL (1.4-6.5); PLATELET COUNT 223 K/uL (130-400); RED CELL DISTRIBUTION WIDTH CV 13.1 % (11.5-14.5); RED CELL DISTRIBUTION WIDTH SD 43.7 fL (36.4-46.3); WHITE BLOOD COUNT 11.77 K/uL (4.8-10.8)
[2018-02-03 13:04] LABS: ALBUMIN 3.8 gm/dl (3.4-5.0); ALT/SGPT 28 U/L (12-78); BLOOD UREA NITROGEN 16 mg/dl (7-18); CALCIUM 9.2 mg/dl (8.5-10.1); CARBON DIOXIDE 25 mmol/L (21-32); CREATININE 0.64 mg/dl (0.60-1.20); GLUCOSE 72 mg/dl (70-99); LIPASE 39 U/L (73-393); POTASSIUM 3.6 mmol/L (3.5-5.1); SODIUM 136 mmol/L (136-145)
[2018-02-03 13:09] LABS: ALKALINE PHOSPHATASE 109 U/L (45-117); AST/SGOT 18 U/L (15-37); TOTAL PROTEIN 7.6 gm/dl (6.4-8.2)
--- NOTE | 2018-02-03 13:50 | DIAGNOSTIC IMAGING REPORT ---
ABDOMEN AND PELVIS CT WITH IV CONTRAST CT DOSE: 290.76 mGy.cm HISTORY: Acute generalized abdominal pain with flulike symptoms and weight loss diffuse lower abd pain TECHNIQUE: Multiaxial CT images of the abdomen and pelvis were performed following the use of intravenous contrast. A dose lowering technique was utilized adhering to the principles of ALARA. COMPARISON STUDY: CT abdomen and pelvis 10/08/2017. FINDINGS: Centrilobular nodular opacities of the lung bases are redemonstrated and appear unchanged suggesting infectious or inflammatory pneumonitis. No pneumatosis or pneumoperitoneum identified. Imaged inferior cardiac chambers are unremarkable. The liver, gallbladder, pancreas and adrenal glands are within normal limits. 5 mm low attenuating lesion of the mid spleen is nonspecific however statistically benign. Kidneys, ureters and urinary bladder are unremarkable. 2.1 cm cystic lesion of the left adnexum is noted. Trace free pelvic fluid is likely physiologic. Aorta is normal in course and caliber. No bulky adenopathy. No bowel obstruction or focal bowel wall thickening identified. The appendix appears normal within the abdominal right lower quadrant. No significant inflammatory changes within the abdomen or pelvis. Soft tissues are unremarkable. The bones appear intact. Bone island of the right femoral head is noted. Minimal intervertebral disc space narrowing and endplate spurring at L5-S1. IMPRESSION: 1. No acute intra-abdominal or intrapelvic abnormality identified. Normal appendix. 2. No bowel obstruction or focal bowel wall thickening. 3. 2.1 cm cystic lesion of the left adnexum suggests dominant follicle. Electronically signed by: Cesario Hoover M.D. 02/03/2018 1:48 PM Dictated Date/Time: 02/03/2018 1:42 PM
[2018-02-03 14:40] VITALS: BP 109/73; PULSE 57; O2SAT 97
--- NOTE | 2018-02-04 07:03 | EMERGENCY ROOM VISIT NOTE ---
ED Visit Note First contact with patient: 10:41 Chief Complaint: History of Present Illness: Historically patient reports she has a history of anxiety/panic attacks. Most recently patient reports over the last month she had the passing of a dear friend, she is moving into a new home and her and another friend have both had MIs; she reports this is causing her significant health problems. Currently patient is complaining of lumbar back pain, chest pain, sore throat, left lower quadrant abdominal pain and a rash. Patient reports she has been having ongoing back pain for many years. She reports she has had x-rays performed previously which showed that she had degenerative disc disease. She reports since starting her move a couple weeks ago and lifting heavy boxes she is has exaggeration of her lumbar back pain. Currently she describes her pain as a diffuse achiness sensation throughout the entire lumbar spine and paraspinous muscles. She rates this discomfort 8/10. Her pain is intermittently radiating into her buttocks. She reports she has mild relief when she is lying flat in bed on her back. She has not taken any medications for pain. She denies any associated bowel and bladder dysfunction, genital paresthesias, lower extremity weakness/numbness/tingling. Additionally she is complaining of anterior chest discomfort. Since the beginning of December her pain has been a tightness and burning sensation. She rates her discomfort 8/10 but is currently pain-free. Her pain is nonradiating. She has not identified any aggravating or alleviating factors related to the pain. She has not taken any medications for her pain prior to arrival at the hospital. She reports associated with her pain intermittently she feels short of breath. She denies upper respiratory tract symptoms, wheezing, cough, previous clots, claudication, cramping, nausea/vomiting. Additionally she complains of a sore throat and swollen tonsils. She describes this pain as a sharp sensation. She rates her discomfort 10/10. This is been going on for the last 5-6 days. Her pain worsens with swallowing. She has had mild relief of her discomfort with the use of an [id number] cough spray and cough drops and drinking carbonated beverages. She denies any associated headache, fevers, difficulty swallowing, painful talking, drooling, voice changes, neck pain/stiffness, inability to swallow. Additionally she is complaining of lower quadrant abdominal pain. This is been ongoing for the last 3 days. She said it initially started in the right lower quadrant but has spread to the left lower quadrant. She describes her pain as a cramping sensation. She rates her discomfort 8/10. Her pain is nonradiating. She has not identified any aggravating factors related to the pain. She reports she has been taken ibuprofen with minimal relief of her discomfort. Associated with her pain she reports that she is noted that her stools appear browner but not black or tarry and she has noted a decreased appetite. She denies nausea/vomiting, rectal bleeding, urinary symptoms, hematuria, vaginal bleeding or discharge; she has noted a slight increase in heaviness of bleeding during her menstrual cycles which she describes as irregular, and back pain. Lastly patient reports this morning she had noted the development of a rash over the lower abdomen that is mildly erythematous and itchy. The rash is specifically located along the area of her belt line and panty line. She has not identified any aggravating or alleviating factors related to the rash. She has not taken any medication for her rash or itchiness prior to arrival at the hospital. Additionally with her multiple complaints patient reports that she has had some chills but no jodi fever, she has been feeling fatigued, she reports she has had a weight loss of 30 pounds in the last year, she has had a mild nonproductive cough, intermittently she feels lightheaded, she has noted blood in her urine but denies any other urinary symptoms. Review of Systems: As noted above in history of present illness. All body systems were reviewed and found to be negative as noted above. Past Medical History: As noted above, unspecified urinary problems, skin disorder and depression. Current Medications: Zoloft. Allergies to Medications: Patient denies. Social History: Patient is currently employed; she feels safe in her home environment; she admits to tobacco and alcohol use. Physical Examination: Vital Signs: Date Time Temp Pulse Resp B/P (MAP) Pulse Ox O2 Delivery O2 Flow Rate FiO2 02/03/18 14:40 57 18 109/73 97 Room Air 02/03/18 13:21 59 18 104/58 94 Room Air 02/03/18 12:34 70 02/03/18 10:26 36.6 79 22 107/71 98 Room Air GENERAL: 32-year-old female in mild to moderate distress due to pain, nontoxic- appearing, afebrile and hemodynamically stable. PSYCHOLOGICAL: Slightly disheveled white female. Affect is flat, mood is depressed. Do not appreciate any paranoid or delusional thought processes. She does not respond to internal stimuli. Questionable flight of ideas with her multiple complaints. She denies suicidal and homicidal ideation. NEUROLOGICAL: Awake, alert and oriented to person, place and time. Answering questions appropriately and following commands. Normal gait. Good hand eye coordination. No focal motor or sensory deficits. Romberg test negative. Pronator drift test negative. Cranial nerves II through XII grossly intact. SKIN: Warm, dry and pink. Abdomen: There is a small variant of erythema at the patient's belt line across the abdomen. There are no lesions within this area of erythema. It is warm to the touch but not hot. It does not appear cellulitic. I do not appreciate any hives consistent with allergic reaction. HEENT: Atraumatic and normocephalic. No tenderness or erythema over the frontal or maxillary sinuses. External ears are nontender. Auditory canals are pink and patent. Tympanic membranes are pearly harvey with normal light reflex. PERRLA. EOMI. Sclera white and conjunctiva pink. No drainage from naris. Oral cavity moist and pink. Airway is patent. Uvula is midline and no abscesses are seen. Pharynx is mildly erythematous and mild edematous. Positive tonsillar hypertrophy. No exudative material on the tonsils. Speech normal. No lymphadenopathy. Trachea midline. No jugular venous distention. No laryngeal tenderness. BACK: No tenderness over the bony cervical, thoracic and lumbar spine. Mild tenderness diffusely throughout the lumbar para musculature without palpable spasm. Decreased range of motion in flexion of the lumbar spine. Negative straight leg raise test. No CVA tenderness. THORAX: Lungs sounds are clear to auscultation and equal bilaterally with symmetrical chest wall. No wheezing, rales or rhonchi. Mild tenderness diffusely over the anterior chest without bony deformity, bony crepitus, swelling or subcutaneous air. No increased respiratory effort or rate. HEART: Regular rate and rhythm. No gallops, rubs or murmurs are appreciated. No lifts, heaves or thrills. PMI is not displaced. ABDOMEN: Flat and soft with mild to moderate tenderness in the lower abdomens with prominence on the left. Decreased bowel sounds in all quadrants. No guarding, rigidity or organomegaly. EXTREMITIES: Moves all extremities well on command and with purpose. All distal neurovascular statuses are intact and equal bilaterally. No calf tenderness or cords. ED Course: Patient is assessed as noted above. Patient's medication list was reviewed. Laboratory Testing: Test 02/03/18 10:35 02/03/18 12:30 02/03/18 14:10 Range/Units Urine Color DK YELLOW Urine Appearance CLEAR CLEAR Urine pH 5.0 4.5-7.5 Urine Specific Hansen 1.030 1.000-1.030 Urine Protein NEG NEG Urine Glucose (UA) NEG NEG Urine Ketones 3+ NEG Urine Occult Blood 2+ NEG Urine Nitrite NEG NEG Urine Bilirubin NEG NEG Urine Urobilinogen NEG NEG Urine Leukocyte Esterase SMALL NEG Urine WBC (Auto) 1-5 0-5 /hpf Urine RBC (Auto) 10-30 0-4 /hpf Urine Hyaline Casts (Auto) 1-5 0-5 /lpf Urine Epithelial Cells (Auto) 20-30 0-5 /lpf Urine Bacteria (Auto) NEG NEG Urine Test NEG NEG White Blood Count 11.77 4.8-10.8 K/uL Red Blood Count 4.37 4.2-5.4 M/uL Hemoglobin 13.7 12.0-16.0 g/dL Hematocrit 39.7 37-47 % Mean Corpuscular Volume 90.8 80-100 fL Mean Corpuscular Hemoglobin 31.4 25-34 pg Mean Corpuscular Hemoglobin Concent 34.5 32-36 g/dl Platelet Count 223 130-400 K/uL Mean Platelet Volume 9.4 7.4-10.4 fL Neutrophils (%) (Auto) 79.5 % Lymphocytes (%) (Auto) 13.6 % Monocytes (%) (Auto) 6.1 % Eosinophils (%) (Auto) 0.3 % Basophils (%) (Auto) 0.3 % Neutrophils # (Auto) 9.37 1.4-6.5 K/uL Lymphocytes # (Auto) 1.60 1.2-3.4 K/uL Monocytes # (Auto) 0.72 0.11-0.59 K/uL Eosinophils # (Auto) 0.03 0-0.5 K/uL Basophils # (Auto) 0.03 0-0.2 K/uL RDW Standard Deviation 43.7 36.4-46.3 fL RDW Coefficient of Variation 13.1 11.5-14.5 % Immature Granulocyte % (Auto) 0.2 % Immature Granulocyte # (Auto) 0.02 0.00-0.02 K/uL Sodium Level 136 136-145 mmol/L Potassium Level 3.6 3.5-5.1 mmol/L Chloride Level 102 98-107 mmol/L Carbon Dioxide Level 25 21-32 mmol/L Anion Gap 10.0 3-11 mmol/L Blood Urea Nitrogen 16 7-18 mg/dl Creatinine 0.64 0.60-1.20 mg/dl Est Creatinine Clear Calc Drug Dose 114.6 ml/min Estimated GFR () 137.8 Estimated GFR (Non- 118.9 BUN/Creatinine Ratio 25.5 10-20 Random Glucose 72 70-99 mg/dl Calcium Level 9.2 8.5-10.1 mg/dl Total Bilirubin 0.5 0.2-1 mg/dl Direct Bilirubin 0.2 0-0.2 mg/dl Aspartate Amino Transf (AST/SGOT) 18 15-37 U/L Alanine Aminotransferase (ALT/SGPT) 28 12-78 U/L Alkaline Phosphatase 109 45-117 U/L Troponin I < 0.015 0-0.045 ng/ml Total Protein 7.6 6.4-8.2 gm/dl Albumin 3.8 3.4-5.0 gm/dl Lipase 39 73-393 U/L Bedside Troponin I < 0.030 0-0.045 ng/ml Microbiology Results Group A Streptococcus Screen: Negative. Culture pending. EKG: Were read by myself and reviewed with Dr. Cordero; shows normal sinus rhythm with sinus arrhythmia. Ventricular rate 62 bpm. Incomplete right bundle branch block. No acute ischemic changes indicating injury or infarction. No previous for comparison. CT Abdomen and Pelvis with IV Contrast: Was reviewed by myself and read by the radiologist showing no acute intra-abdominal or intrapelvic abnormality. Normal -appearing appendix. No bowel obstruction or focal bowel wall thickening. 2.1 cystic lesion on the left adnexa suggesting a dominant follicle. An IV lock was initiated and patient was given 4 mg of Zofran IV and 1 g of acetaminophen IV for her symptoms; she refused narcotic pain control. Patient was reassessed multiple times during her stay in the emergency department. Patient's case was reviewed with Dr. Cordero; we agreed on diagnostic approach, treatment, disposition and plan. Patient was educated about today's findings and instructed on her treatment plan ; she verbalized understanding and agreement with this plan. Clinical Impression: Acute pharyngitis. Bilateral lower abdominal pain. Chest pain. Anxiety. Rash. Decision-Making: Initially my differential diagnosis for her sore throat I considered pharyngitis for many causes including mononucleosis, viral infections , streptococcal infections, for her chest pain I considered anxiety, acute coronary ischemia, thoracic aneurysm, pneumothorax, pneumonia, for her abdominal pain I considered diverticulitis, ectopic , colitis, STDs and other causes. Disposition: Patient discharged to home in stable condition; prior to departure she was reassessed and subjectively reported she was feeling much better from all her symptoms; she rated her throat discomfort 2/10, she reported resolution of her chest pain, she rated her abdominal pain 2/10. Plan: Patient was encouraged to continue her current medications. Patient was encouraged alternate ibuprofen and acetaminophen every 3 hours for her persistent pains and/or fevers. Patient was encouraged to increase clear fluids. Patient was encouraged to keep her upcoming appointment with her PCP next week. Patient was encouraged return the ED for worsening/uncontrolled pain/symptoms, worsening fevers, shortness of breath, bloody stools or any new/concerning symptoms.
--- NOTE | 2018-02-04 15:13 | Pharmacy Progress Note ---
ED Pharmacist Culture FollowUp Date of Service: Feb 04, 2018. Backup throat cx is growing MANY GAS. Ladi López PAC has requested I contact the patient and notify her of the results and call in Rx for Amoxil 875mg PO BID x 10 days to the pharmacy of her choice. I attempted to contact the patient w/ ph # provided ([phone]) however there was no answer. I did leave a messaged at 1130 today requesting a call back.
== END 2018-02-03 14:48 | disposition home or self-care (01) ==
LOC: C.EDB 10:18 → C.EDC 14:48
DX: J02.9 Acute pharyngitis, unspecified (principal); R07.9 Chest pain, unspecified; F41.9 Anxiety disorder, unspecified; R21 Rash and other nonspecific skin eruption; R10.32 Left lower quadrant pain